=== PATIENT | male | born 1970 | race Caucasian/White ===

== ENCOUNTER 2020-12-20 10:02 | Inpatient (IN) ==
[2020-12-20] MEDS ORDERED: Ipratropium/Albuterol Neb 3 ML IH ONE (10:14)
[2020-12-20] MEDS ORDERED: methylPREDNISolone 125 MG in 0.9 % Sodium Chloride 100 ML IVPB ONE (10:15)
[2020-12-20] MEDS ORDERED: methylPREDNISolone 125 MG/2 ML VIAL IVP ONE (10:20)
[2020-12-20 11:20] LABS: Basophils # 0.1 K/mcL (0.0-0.2); Basophils % 0.6 %; Eosinophils # 0.2 K/mcL (0.0-0.6); Eosinophils % 1.9 %; Hematocrit 50.7 % (37.5-50.1); Hemoglobin 16.2 g/dL (12.9-16.9); Immature Granulocytes % 0.3 % (0-4); Lymphocytes # 1.7 K/mcL (0.6-4.6); Lymphocytes % 18.8 %; Mean Corpuscular Volume 87.6 fL (83.0-100.0); Mean Platelet Volume 10.6 fL (9.4-12.4); Monocytes # 0.7 K/mcL (0.0-1.3); Monocytes % 7.3 %; Neutrophils # 6.4 K/mcL (1.6-8.9); Platelet Count 230 K/mcL (140-400); Red Blood Count 5.79 M/mcL (4.19-5.50); Red Cell Distribution Width 14.3 % (11.5-14.5); Segmented Neutrophils % 71.1 %
[2020-12-20 11:31] LABS: BUN/Creatinine Ratio 16 (6-26); Blood Urea Nitrogen 15 mg/dL (6-20); Calcium 8.1 mg/dL (8.6-10.3); Carbon Dioxide 23 mEq/L (23-29); Chloride 105 mEq/L (98-107); Glucose 135 mg/dL (70-105); Osmolality,Calculated 289 (280-300); Potassium 3.5 mEq/L (3.5-5.1); Sodium 138 mEq/L (136-145); eGFR For African Americans > 60 (> 60); eGFR For Non-African Americans > 60 (> 60)
[2020-12-20 11:35] LABS: Troponin I 0.05 ng/mL (< 0.04)
[2020-12-20] MEDS ORDERED: Aspirin 81 MG TAB.CHEW PO STA (11:36)
[2020-12-20] MEDS ORDERED: Perflutren Lipid Microsphere 1.3 ML in 0.9 % Sodium Chloride 8.7 ML IVP PRN (13:22)
[2020-12-20] MEDS ORDERED: Ondansetron 4 MG/2 ML VIAL IVP PRN (13:23)
[2020-12-20] MEDS ORDERED: Naloxone 0.4 MG/ML INJ IVP PRN (13:23)
[2020-12-20] MEDS ORDERED: *HR* Metoprolol 5 MG/5 ML VIAL IVP ONE (13:54)
[2020-12-20] MEDS ORDERED: Calcium Gluconate 1gm/50mL 1 GM/50 ML BAG IVPB ONE ×2 (13:58→15:00)
[2020-12-20] MEDS ORDERED: Nitroglycerin 0.4 MG TAB.SUBL SL PRN (14:35)
[2020-12-20 18:11] LABS: ABG Base Excess 0 mEq/L (-2 to 3); ABG HCO3 24 mEq/L (21-27); ABG Oxygen Saturation 100 % (95-98); ABG PCO2 37 mmHg (35-45); ABG PH 7.42 pH Units (7.32-7.45); ABG PO2 240 mmHg (85-104); ABG TCO2 25 mEq/L (20-26)
[2020-12-20] MEDS ORDERED: Acetaminophen 325 MG TABLET PO ONE (22:07)
[2020-12-21 04:47] LABS: Hematocrit 49.6 % (37.5-50.1); Hemoglobin 16.1 g/dL (12.9-16.9); Mean Corpuscular HGB Conc 32.5 g/dL (31.6-35.5); Mean Corpuscular Hemoglobin 28.2 pg (28.0-33.3); Mean Platelet Volume 10.6 fL (9.4-12.4); Platelet Count 278 K/mcL (140-400); Red Cell Distribution Width 14.4 % (11.5-14.5)
[2020-12-21 04:49] LABS: White Blood Count 17.1 K/mcL (4.3-11.1)
[2020-12-21 05:08] LABS: BUN/Creatinine Ratio 24 (6-26); Blood Urea Nitrogen 24 mg/dL (6-20); Calcium 8.8 mg/dL (8.6-10.3); Carbon Dioxide 24 mEq/L (23-29); Chloride 101 mEq/L (98-107); Chol/HDL Ratio 4.8 (0-4.9); Cholesterol 159 mg/dL (< 200); Glucose 158 mg/dL (70-105); HDL Cholesterol 33 mg/dL (40-59); LDL Cholesterol,Calculated 103 mg/dL (< 100); Magnesium 2.2 mg/dL (1.6-2.6); Osmolality,Calculated 289 (280-300); Potassium 4.1 mEq/L (3.5-5.1); Sodium 136 mEq/L (136-145); Triglycerides 115 mg/dL (< 150); eGFR For African Americans > 60 (> 60); eGFR For Non-African Americans > 60 (> 60)
[2020-12-21 05:30] LABS: % Iron Saturation 19 % (20-55); Ferritin 78 ng/mL (20-250); Iron 55 mcg/dL (65-175); Transferrin 206 mg/dL (203-362)
[2020-12-21 08:16] LABS: Estimated Average Glucose 140 mg/dl; Hemoglobin A1C 6.5 %
[2020-12-21] MEDS ORDERED: amLODIPine 5 MG TABLET PO SCH (09:00)
[2020-12-21] MEDS ORDERED: lisinopriL 10 MG TABLET PO SCH (09:00)
[2020-12-21] MEDS: Acetaminophen 325 MG TABLET PO PRN (09:07)
[2020-12-21] MEDS: Aspirin Enteric Coated 81 MG Tablet PO SCH (09:08)
[2020-12-21] MEDS ORDERED: Ipratropium/Albuterol Neb 3 ML IH PRN (14:19)
[2020-12-21] MEDS: carvediloL 6.25 MG TABLET PO SCH ×2 (14:33→17:10)
[2020-12-21 14:42] LABS: Bacteria,Urine Few per hpf (None-Few); Bilirubin,Urine Negative (Negative); Blood,Urine Negative (Negative); Clarity,Urine Clear (Clear); Color,Urine Light-Yellow (Yellow); Glucose,Urine (UA) 50 mg/dL (Normal); Hyaline Casts,Urine Few per lpf (None Seen); Ketones,Urine Trace mg/dL (Negative); Leukocyte Esterase,Urine Negative (Negative); Mucus,Urine Few per lpf (None-Few); Nitrite,Urine Negative (Negative); Protein,Urine Trace mg/dL (Neg-Trace); RBC,Urine 0-3 per hpf (0-3); Specific Gravity,Urine 1.028 (1.010-1.025); Urobilinogen,Urine Normal (Normal); WBC,Urine 0-3 per hpf (0-3)
[2020-12-21] MEDS: Isovue-370 500 ML BOTTLE IVP ONE ×2 (15:17→15:18)
[2020-12-21] MEDS ORDERED: carvediloL 6.25 MG TABLET PO SCH (17:00)
[2020-12-21] MEDS: *HR* Heparin 5,000 UNIT/ML VIAL SQ SCH (17:09)
[2020-12-22 01:28] LABS: Hemoglobin 15.9 g/dL (12.9-16.9); Mean Corpuscular HGB Conc 32.4 g/dL (31.6-35.5); Mean Corpuscular Hemoglobin 28.4 pg (28.0-33.3); Mean Corpuscular Volume 87.7 fL (83.0-100.0); Mean Platelet Volume 10.7 fL (9.4-12.4); Platelet Count 232 K/mcL (140-400); Red Blood Count 5.59 M/mcL (4.19-5.50); Red Cell Distribution Width 14.2 % (11.5-14.5); White Blood Count 13.4 K/mcL (4.3-11.1)
[2020-12-22 01:43] LABS: BUN/Creatinine Ratio 28 (6-26); Blood Urea Nitrogen 24 mg/dL (6-20); Calcium 8.3 mg/dL (8.6-10.3); Carbon Dioxide 26 mEq/L (23-29); Chloride 102 mEq/L (98-107); Glucose 125 mg/dL (70-105); Osmolality,Calculated 288 (280-300); Potassium 3.7 mEq/L (3.5-5.1); Sodium 136 mEq/L (136-145); eGFR For African Americans > 60 (> 60); eGFR For Non-African Americans > 60 (> 60)
[2020-12-22] MEDS: *HR* Heparin 5,000 UNIT/ML VIAL SQ SCH ×2 (05:09→17:47)
[2020-12-22] MEDS ORDERED: Albuterol 2.5 MG/3 ML NEBULIZER IH PRN (07:39)
[2020-12-22] MEDS: Ipratropium/Albuterol Neb 3 ML IH SCH ×5 (07:56→23:48)
[2020-12-22] MEDS: carvediloL 6.25 MG TABLET PO SCH ×2 (08:21→17:47)
[2020-12-22] MEDS: Aspirin Enteric Coated 81 MG Tablet PO SCH (08:21)
[2020-12-22] MEDS: predniSONE 20 MG TABLET PO SCH (08:21)
[2020-12-22] MEDS ORDERED: carvediloL 6.25 MG TABLET PO ONE (08:53)
[2020-12-22] MEDS ORDERED: Perflutren Lipid Microsphere 1.3 ML in 0.9 % Sodium Chloride 8.7 ML IVP PRN (08:55)
[2020-12-22] MEDS ORDERED: Furosemide 20 MG/2 ML VIAL IVP ONE (08:59)
[2020-12-23] MEDS: Acetaminophen 325 MG TABLET PO PRN ×2 (03:21→23:11)
[2020-12-23] MEDS: Ipratropium/Albuterol Neb 3 ML IH SCH ×6 (04:07→22:42)
[2020-12-23 04:35] LABS: Hematocrit 48.1 % (37.5-50.1); Hemoglobin 15.5 g/dL (12.9-16.9); Mean Corpuscular HGB Conc 32.2 g/dL (31.6-35.5); Mean Corpuscular Hemoglobin 27.8 pg (28.0-33.3); Mean Corpuscular Volume 86.4 fL (83.0-100.0); Mean Platelet Volume 10.6 fL (9.4-12.4); Platelet Count 236 K/mcL (140-400); Red Blood Count 5.57 M/mcL (4.19-5.50); Red Cell Distribution Width 14.1 % (11.5-14.5); White Blood Count 13.6 K/mcL (4.3-11.1)
[2020-12-23 04:53] LABS: BUN/Creatinine Ratio 22 (6-26); Blood Urea Nitrogen 18 mg/dL (6-20); Calcium 8.8 mg/dL (8.6-10.3); Carbon Dioxide 30 mEq/L (23-29); Chloride 100 mEq/L (98-107); Glucose 93 mg/dL (70-105); Osmolality,Calculated 286 (280-300); Potassium 3.5 mEq/L (3.5-5.1); Sodium 137 mEq/L (136-145); eGFR For African Americans > 60 (> 60); eGFR For Non-African Americans > 60 (> 60)
[2020-12-23] MEDS: *HR* Heparin 5,000 UNIT/ML VIAL SQ SCH ×2 (06:29→17:02)
[2020-12-23] MEDS: predniSONE 20 MG TABLET PO SCH (07:41)
[2020-12-23] MEDS: Aspirin Enteric Coated 81 MG Tablet PO SCH (07:41)
[2020-12-23] MEDS: carvediloL 6.25 MG TABLET PO SCH ×2 (07:41→17:01)
[2020-12-23] MEDS ORDERED: Chloraseptic Spray 177 ML BOTTLE MM PRN (16:43)
[2020-12-23] MEDS ORDERED: Saliva Stimulant 44.3ml BOTTLE PO PRN (16:43)
[2020-12-23] MEDS ORDERED: Melatonin 3 MG TABLET PO PRN (16:43)
[2020-12-23] MEDS ORDERED: Saline Nasal Spray 44 ML BOTTLE NS PRN (16:43)
[2020-12-23] MEDS ORDERED: Iron Sucrose Complex 400 MG in 0.9 % Sodium Chloride 250 ML IVPB ONE (16:45)
[2020-12-23] MEDS: Budesonide/Formoterol 160/4.5 1 PUFF INH IH SCH (19:55)
[2020-12-23] MEDS: Chlorhexidine Rinse 15 ML MOUTHWASH MM SCH (20:37)
[2020-12-23] MEDS: Artificial Tears SOLN 15 ML BOTTLE BOTH EYES SCH (23:11)
[2020-12-24 03:25] LABS: Hematocrit 45.4 % (37.5-50.1); Mean Corpuscular Hemoglobin 28.1 pg (28.0-33.3); Mean Platelet Volume 10.6 fL (9.4-12.4); Platelet Count 224 K/mcL (140-400); Red Blood Count 5.34 M/mcL (4.19-5.50); Red Cell Distribution Width 14.3 % (11.5-14.5); White Blood Count 12.8 K/mcL (4.3-11.1)
[2020-12-24 03:44] LABS: BUN/Creatinine Ratio 26 (6-26); Blood Urea Nitrogen 21 mg/dL (6-20); Calcium 8.9 mg/dL (8.6-10.3); Carbon Dioxide 28 mEq/L (23-29); Chloride 100 mEq/L (98-107); Glucose 100 mg/dL (70-105); Magnesium 1.9 mg/dL (1.6-2.6); Osmolality,Calculated 285 (280-300); Phosphorous 3.8 mg/dL (2.7-4.5); Potassium 3.2 mEq/L (3.5-5.1); Sodium 136 mEq/L (136-145); eGFR For African Americans > 60 (> 60); eGFR For Non-African Americans > 60 (> 60)
[2020-12-24] MEDS: Ipratropium/Albuterol Neb 3 ML IH SCH ×3 (03:55→11:37)
[2020-12-24] MEDS: *HR* Heparin 5,000 UNIT/ML VIAL SQ SCH (05:45)
[2020-12-24 07:21] VITALS: BP 141/79
[2020-12-24] MEDS: carvediloL 6.25 MG TABLET PO SCH (07:40)
[2020-12-24] MEDS: predniSONE 20 MG TABLET PO SCH (07:40)
[2020-12-24] MEDS: Aspirin Enteric Coated 81 MG Tablet PO SCH (07:40)
[2020-12-24] MEDS: Chlorhexidine Rinse 15 ML MOUTHWASH MM SCH (07:40)
[2020-12-24] MEDS: Artificial Tears SOLN 15 ML BOTTLE BOTH EYES SCH (07:41)
[2020-12-24] MEDS: Budesonide/Formoterol 160/4.5 1 PUFF INH IH SCH (08:11)
[2020-12-24] MEDS ORDERED: Nicotine 14 MG PATCH.TD24 TD SCH (09:00)
[2020-12-24] MEDS ORDERED: Multivit/Ca/Min/Fe/FA 1 TAB TABLET PO SCH (09:00)
[2020-12-24] MEDS ORDERED: lisinopriL 20 MG TABLET PO SCH (09:00)
[2020-12-24] MEDS ORDERED: amLODIPine 5 MG TABLET PO SCH (09:00)
[2020-12-24] MEDS ORDERED: hydroCHLOROthiazide 25 MG TABLET PO SCH (09:00)
== END 2020-12-24 12:55 | disposition home or self-care (01) | DRG 816 ==
LOC: EMEROOARM 10:02 → 2NENU 10:02 → SUATTDRO 12:39 → 2NENU 13:52 → SUATTDRO 12-22 10:52
PROVIDERS: ADMIT General Practice; ATTEND Internal Medicine

== ENCOUNTER 2022-02-09 10:08 | Inpatient (IN) ==
[2022-02-09 11:01] LABS: Basophils # 0.1 K/mcL (0.0-0.2); Basophils % 0.6 %; Eosinophils # 0.3 K/mcL (0.0-0.6); Eosinophils % 2.3 %; Hematocrit 48.7 % (37.5-50.1); Hemoglobin 16.5 g/dL (12.9-16.9); Immature Granulocytes % 0.3 % (0-4); Lymphocytes # 2.4 K/mcL (0.6-4.6); Lymphocytes % 21.4 %; Mean Corpuscular HGB Conc 33.9 g/dL (31.6-35.5); Mean Corpuscular Hemoglobin 29.6 pg (28.0-33.3); Mean Corpuscular Volume 87.4 fL (83.0-100.0); Mean Platelet Volume 10.7 fL (9.4-12.4); Monocytes % 8.7 %; Neutrophils # 7.3 K/mcL (1.6-8.9); Platelet Count 245 K/mcL (140-400); Red Blood Count 5.57 M/mcL (4.19-5.50); Red Cell Distribution Width 13.6 % (11.5-14.5); Segmented Neutrophils % 66.7 %
[2022-02-09] MEDS ORDERED: carvediloL 6.25 MG TABLET PO ONE (11:19)
[2022-02-09] MEDS ORDERED: lisinopriL 20 MG TABLET PO ONE (11:20)
[2022-02-09 11:21] LABS: BUN/Creatinine Ratio 11 (6-26); Blood Urea Nitrogen 11 mg/dL (6-20); Calcium 9.2 mg/dL (8.6-10.3); Carbon Dioxide 29 mEq/L (23-29); Chloride 101 mEq/L (98-107); Glucose 188 mg/dL (70-105); Osmolality,Calculated 290 (280-300); Potassium 2.9 mEq/L (3.5-5.1); Sodium 138 mEq/L (136-145); eGFR For African Americans > 60 (> 60); eGFR For Non-African Americans > 60 (> 60)
[2022-02-09 11:32] LABS: Troponin I 0.04 ng/mL (< 0.04)
[2022-02-09] MEDS ORDERED: Aspirin 325 MG TABLET PO ONE (11:36)
[2022-02-09] MEDS ORDERED: *HR* Labetalol 20 MG/4 ML SYRINGE IVP ONE (11:42)
[2022-02-09] MEDS ORDERED: 0.9 % Sodium Chloride 1,000 ML IV ONE (12:15)
[2022-02-09] MEDS ORDERED: Acetaminophen 325 MG TABLET PO PRN (13:00)
[2022-02-09] MEDS ORDERED: Naloxone 0.4 MG/ML INJ IVP PRN (13:00)
[2022-02-09] MEDS ORDERED: Ondansetron 4 MG/2 ML VIAL IVP PRN (13:00)
[2022-02-09 19:02] LABS: BUN/Creatinine Ratio 14 (6-26); Blood Urea Nitrogen 13 mg/dL (6-20); Calcium 8.5 mg/dL (8.6-10.3); Carbon Dioxide 24 mEq/L (23-29); Chloride 106 mEq/L (98-107); Glucose 138 mg/dL (70-105); Osmolality,Calculated 292 (280-300); Potassium 4.2 mEq/L (3.5-5.1); Sodium 140 mEq/L (136-145); eGFR For African Americans > 60 (> 60); eGFR For Non-African Americans > 60 (> 60)
[2022-02-10 03:27] LABS: Basophils # 0.1 K/mcL (0.0-0.2); Basophils % 0.5 %; Eosinophils # 0.2 K/mcL (0.0-0.6); Eosinophils % 1.6 %; Hematocrit 50.6 % (37.5-50.1); Hemoglobin 16.5 g/dL (12.9-16.9); Immature Granulocytes % 0.4 % (0-4); Lymphocytes # 2.4 K/mcL (0.6-4.6); Lymphocytes % 21.9 %; Mean Corpuscular HGB Conc 32.6 g/dL (31.6-35.5); Mean Corpuscular Hemoglobin 28.9 pg (28.0-33.3); Mean Corpuscular Volume 88.8 fL (83.0-100.0); Mean Platelet Volume 11.1 fL (9.4-12.4); Monocytes # 0.8 K/mcL (0.0-1.3); Monocytes % 6.9 %; Neutrophils # 7.5 K/mcL (1.6-8.9); Platelet Count 251 K/mcL (140-400); Red Cell Distribution Width 13.8 % (11.5-14.5); Segmented Neutrophils % 68.7 %
[2022-02-10 03:41] LABS: BUN/Creatinine Ratio 15 (6-26); Blood Urea Nitrogen 11 mg/dL (6-20); Calcium 8.6 mg/dL (8.6-10.3); Carbon Dioxide 26 mEq/L (23-29); Chloride 105 mEq/L (98-107); Glucose 97 mg/dL (70-105); Magnesium 2.1 mg/dL (1.6-2.6); Osmolality,Calculated 287 (280-300); Potassium 3.6 mEq/L (3.5-5.1); Sodium 139 mEq/L (136-145); eGFR For African Americans > 60 (> 60); eGFR For Non-African Americans > 60 (> 60)
[2022-02-10 03:49] LABS: INR 1.1; Prothrombin Time 12.3 Seconds (9.4-12.1)
[2022-02-10] MEDS: *HR* Enoxaparin 40 MG/0.4 ML SYRINGE SQ SCH (06:26)
[2022-02-10] MEDS ORDERED: Regadenoson 0.4 MG/5 ML SYRINGE IVP ONE (08:37)
[2022-02-10] MEDS ORDERED: amLODIPine 5 MG TABLET PO SCH (09:00)
[2022-02-10] MEDS: amLODIPine 5 MG TABLET PO SCH (09:53)
[2022-02-10] MEDS: Multivit/Ca/Min/Fe/FA 1 TAB TABLET PO SCH (09:53)
[2022-02-10] MEDS: Aspirin Enteric Coated 81 MG Tablet PO SCH (09:53)
[2022-02-10] MEDS ORDERED: Perflutren Lipid Microsphere 1.3 ML in 0.9 % Sodium Chloride 8.7 ML IVP PRN (09:54)
[2022-02-10] MEDS: lisinopriL 20 MG TABLET PO SCH (13:38)
[2022-02-10] MEDS: carvediloL 25 MG TABLET PO SCH (17:16)
[2022-02-10] MEDS ORDERED: carvediloL 6.25 MG TABLET PO SCH (21:00)
[2022-02-11] MEDS: *HR* Enoxaparin 40 MG/0.4 ML SYRINGE SQ SCH (05:31)
[2022-02-11] MEDS ORDERED: Regadenoson 0.4 MG/5 ML SYRINGE IVP ONE (06:04)
[2022-02-11] MEDS: carvediloL 25 MG TABLET PO SCH (07:11)
[2022-02-11] MEDS: lisinopriL 20 MG TABLET PO SCH (07:12)
[2022-02-11] MEDS: amLODIPine 5 MG TABLET PO SCH (07:12)
[2022-02-11] MEDS: Multivit/Ca/Min/Fe/FA 1 TAB TABLET PO SCH (07:12)
[2022-02-11] MEDS: Aspirin Enteric Coated 81 MG Tablet PO SCH (07:12)
[2022-02-11 10:39] VITALS: BP 107/68; PULSE 81; TEMP 97.4; O2SAT 95
== END 2022-02-11 13:15 | disposition home or self-care (01) | DRG 199 ==
LOC: 2ANU 10:08 → EMEROOARM 10:08 → 2ANU 13:13 → SUATTDRO 18:35
PROVIDERS: ADMIT Pharmacist; ATTEND Internal Medicine